=== PATIENT | female | born 1995 | race Caucasian/White ===

== ENCOUNTER 2018-11-27 23:01 | Emergency (ER) | payer OTHER ==
[2018-11-27 23:22] VITALS: O2SAT 100
[2018-11-27] MEDS ORDERED: Zofran 4 MG/2 ML VIAL IV ONE (23:34)
[2018-11-27] MEDS ORDERED: Sodium Chloride 0.9% 1000 ML 1,000 ML IV STA (23:34)
--- NOTE | 2018-11-27 23:34 | ERPHSYRPT ---
- History of Present Illness Time Seen by Provider: 11/27/18 23:20 Source: patient Exam Limitations: no limitations Patient Subjective Stated Complaint: Pt states she was sitting when she started to feel like she would "pass out", started loosing hearing and getting tunnel vision, put head between her knees to try to stop from passing out. pt states "the next thing I know the ambulance was there". Pt states she has passed out before "but it was because of over heating". Triage Nursing Assessment: pink/warm/dry, resp easy, a&ox4, steady gait to room , rash noted to inner thighs and knees that pt is taking medications for. Physician History: 23 y/o white female [facility]. this evening, pt felt dizzy and felt as though she was going to pass out. then she did. woke up and ems there evaluating her. pt had a similary episode in the remove past and was dx with overheating. denies head injury, headache, cp, abd pain, n/v/d. pt denies h /o seizures but boyfriend witnessed her shaking, sliding down from a sitting position, was "out of it" for 3 to 5 minutes, breathing on her own, with a rapid heart rate and incontinent of stool. pt refused ems transport. pt came into ED on her own. pt is taking hydroxyzine, prednisone and doxycycline for skin rash/infection. Witnessed: by family Prior Episodes: single episode today, remote history Timing/Duration: today, resolved prior to arrival Precipitating Factors: lightheadedness, other (tunnel vision) Loss of Consciousness: unsure, other (woke up and ems was evaluating her. ) Charcter of event(s): became unresponsive, felt faint Allergies/Adverse Reactions: Penicillins Allergy (Verified 11/27/18 23:11) Hx Tetanus, Diphtheria Vaccination/Date Given: Yes Hx Influenza Vaccination/Date Given: Yes Hx Pneumococcal Vaccination/Date Given: Yes Immunizations Up to Date: Yes - Past Medical History Pertinent Past Medical History: No Neurological History: No Pertinent History ENT History: No Pertinent History Cardiac History: No Pertinent History Respiratory History: No Pertinent History Endocrine Medical History: No Pertinent History Musculoskeletal History: No Pertinent History GI Medical History: No Pertinent History History: No Pertinent History Psycho-Social History: No Pertinent History Female Reproductive Disorders: No Pertinent History - Past Surgical History Past Surgical History: No Neuro Surgical History: No Pertinent History Cardiac: No Pertinent History Respiratory: No Pertinent History Gastrointestinal: No Pertinent History Genitourinary: No Pertinent History Musculoskeletal: No Pertinent History Female Surgical History: No Pertinent History - Social History Smoking Status: Current every day smoker Exposure to second hand smoke: Yes Drug Use: none Patient Lives Alone: No - Female History Hx Last Menstrual Period: 2 weeks ago Hx Now: No - Review of Systems Constitutional: No Symptoms Eyes: No Symptoms Ears, Nose, & Throat: No Symptoms Respiratory: No Symptoms Cardiac: No Symptoms Abdominal/Gastrointestinal: No Symptoms Genitourinary Symptoms: No Symptoms Musculoskeletal: No Symptoms Skin: Rash Neurological: Dizziness, Seizure Psychological: No Symptoms Endocrine: No Symptoms Hematologic/Lymphatic: No Symptoms Immunological/Allergic: No Symptoms All Other Systems: Reviewed and Negative Physical Exam - Nursing Vital Signs Nursing Vital Signs: Initial Vital Signs Temperature 97.9 F 11/27/18 23:12 Pulse Rate 74 11/27/18 23:12 Respiratory Rate 14 11/27/18 23:12 Blood Pressure 118/85 11/27/18 23:12 O2 Sat by Pulse Oximetry 100 11/27/18 23:12 Pain Scale Pain Intensity 0 - Waldemar Coma Scale Best Eye Response ([place]ar): (4) open spontaneously Best Verbal Response ([place]): (5) oriented Best Motor Response (W[place]emar): (6) obeys commands Waldemar Total: 15 - Physical Exam General Appearance: no apparent distress, alert, anxiety Eye Exam: bilateral eye: normal inspection, PERRL, EOMI Ears, Nose, Throat Exam: normal ENT inspection, TMs normal, pharynx normal, moist mucous membranes Neck Exam: normal inspection, non-tender, supple, full range of motion Respiratory: normal breath sounds, lungs clear, airway intact, No chest tenderness, No respiratory distress Cardiovascular: regular rate/rhythm, normal heart sounds, normal peripheral pulses Gastrointestinal: soft, normal bowel sounds, No tenderness Pelvic Exam: not done Rectal Exam: not done Back Exam: normal inspection, normal range of motion, No CVA tenderness, No vertebral tenderness Extremity Exam: normal inspection, normal range of motion, pelvis stable Mental Status: alert, oriented x 3, 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 Exam: normal hearing, normal speech, PERRL, tongue midline Coordination/Gait: normal finger to nose, normal gait, normal cerebellar function Motor/Sensory: no motor deficit, no sensory deficit, no pronator drift Skin Exam: rash (bilat lower ext rash(pt currently under tx)) SpO2 Interpretation: normal SpO2: 100 O2 Delivery: Room Air - Course Nursing assessment & vital signs reviewed: Yes EKG Interpreted by Me: RATE (63), Sinus Rhythm, NORMAL INTERVALS, NORMAL QRS, Other (SI/QIIIpattern; no acute ischemia; no comparison ekg) Ordered Tests: Active Orders 24 hr Category Date Time Status Third Cook STAT Care 11/27/18 23:35 Active Clean Catch Urine Specimen STAT Care 11/27/18 23:34 Active EKG-ER Only STAT Care 11/27/18 23:34 Active IV Insertion STAT Care 11/27/18 23:34 Active Orthostatic Vital Signs STAT Care 11/27/18 23:27 Active HEAD WITHOUT CONTRAST [CT] Stat Exams 11/27/18 23:35 Ordered Medication Summary Discontinued Medications Generic Name Dose Route Start Last Admin Trade Name Freq PRN Reason Stop Dose Admin Sodium Chloride 1,000 mls @ 999 mls/hr 11/27/18 23:34 11/28/18 00:02 Sodium Chloride 0.9% 1000 Ml IV 11/28/18 00:34 999 mls/hr .Q1H1M STA Administration Sodium Chloride Confirm 11/27/18 23:41 Sodium Chloride 0.9% 1000 Ml Administered 11/27/18 23:42 Dose 1,000 mls @ ud .ROUTE .STK-MED ONE Ondansetron HCl 4 mg 11/27/18 23:34 11/28/18 00:02 Zofran 4 Mg/2 Ml Vial IV 11/27/18 23:35 4 mg STAT ONE Administration Ondansetron HCl Confirm 11/27/18 23:41 Zofran 4 Mg/2 Ml Vial Administered 11/27/18 23:42 Dose 4 mg .ROUTE .STK-MED ONE Lab/Rad Data: Laboratory Result Diagrams 11/27/18 00:16 11/27/18 00:16 Laboratory Results 11/27/18 11/27/18 11/27/18 Range/Units 00:16 00:16 00:16 WBC 17.6 H (4.0-10.5) K/mm3 RBC 4.70 (4.1-5.4) M/mm3 Hgb 14.4 (12.0-16.0) gm/dl Hct 43.2 (35-47) % MCV 91.9 (78-100) fl MCH 30.6 (26-32) pg MCHC 33.3 (32-36) g/dl RDW 13.6 (11.5-14.0) % Plt Count 196 (150-450) K/mm3 MPV 13.0 H (6-9.5) fl Gran % 64.5 (36.0-66.0) % Eos # (Auto) 1.52 H (0-0.5) Absolute Lymphs (auto) 3.56 (1.0-4.6) Absolute Monos (auto) 1.17 (0.0-1.3) Lymphocytes % 20.2 L (24.0-44.0) % Monocytes % 6.6 (0.0-12.0) % Eosinophils % 8.6 H (0.00-5.0) % Basophils % 0.1 (0.0-0.4) % Absolute Granulocytes 11.36 H (1.4-6.9) Basophils # 0.02 (0-0.4) Sodium 138 (137-145) mmol/L Potassium 3.1 L (3.5-5.1) mmol/L Chloride 102 (98-107) mmol/L Carbon Dioxide 25 (22-30) mmol/L Anion Gap 13.9 (5-15) MEQ/L BUN 12 (7-17) mg/dL Creatinine 0.60 (0.52-1.04) mg/dL Estimated GFR > 60.0 ML/MIN Glucose 77 (74-106) mg/dL Calcium 8.9 (8.4-10.2) mg/dL Total Bilirubin 0.30 (0.2-1.3) mg/dL AST 15 (14-36) U/L ALT 18 (0-35) U/L Alkaline Phosphatase 43 (38-126) U/L Serum Total Protein 6.7 (6.3-8.2) g/dL Albumin 3.8 (3.5-5.0) g/dL Urine Color (YELLOW) Urine Appearance (CLEAR) Urine pH (5-6) Ur Specific Lockhart (1.005-1.025) Urine Protein (Negative) Urine Ketones (NEGATIVE) Urine Blood (0-5) Charles/ul Urine Nitrite (NEGATIVE) Urine Bilirubin (NEGATIVE) Urine Urobilinogen (0-1) mg/dL Ur Leukocyte Esterase (NEGATIVE) Urine WBC (Auto) (0-5) /HPF Urine RBC (Auto) (0-2) /HPF U Epithel Cells (Auto) (FEW) /HPF Urine Bacteria (Auto) (NEGATIVE) /HPF Urine Mucus (Auto) (NEGATIVE) /HPF Urine Culture Reflexed (NO) Urine Glucose (NEGATIVE) mg/dL Urine HCG, Qual NEGATIVE (Negative) Urine Opiates Level (NEGATIVE) Ur Methadone (NEGATIVE) Urine Barbiturates (NEGATIVE) Ur Phencyclidine (PCP) (NEGATIVE) Urine Amphetamine (NEGATIVE) U Benzodiazepine Level (NEGATIVE) Urine Cocaine (NEGATIVE) Urine Marijuana (THC) (NEGATIVE) Ethyl Alcohol < 10 (0-10) mg/dL 11/27/18 11/27/18 Range/Units 00:16 00:16 WBC (4.0-10.5) K/mm3 RBC (4.1-5.4) M/mm3 Hgb (12.0-16.0) gm/dl Hct (35-47) % MCV (78-100) fl MCH (26-32) pg MCHC (32-36) g/dl RDW (11.5-14.0) % Plt Count (150-450) K/mm3 MPV (6-9.5) fl Gran % (36.0-66.0) % Eos # (Auto) (0-0.5) Absolute Lymphs (auto) (1.0-4.6) Absolute Monos (auto) (0.0-1.3) Lymphocytes % (24.0-44.0) % Monocytes % (0.0-12.0) % Eosinophils % (0.00-5.0) % Basophils % (0.0-0.4) % Absolute Granulocytes (1.4-6.9) Basophils # (0-0.4) Sodium (137-145) mmol/L Potassium (3.5-5.1) mmol/L Chloride (98-107) mmol/L Carbon Dioxide (22-30) mmol/L Anion Gap (5-15) MEQ/L BUN (7-17) mg/dL Creatinine (0.52-1.04) mg/dL Estimated GFR ML/MIN Glucose (74-106) mg/dL Calcium (8.4-10.2) mg/dL Total Bilirubin (0.2-1.3) mg/dL AST (14-36) U/L ALT (0-35) U/L Alkaline Phosphatase (38-126) U/L Serum Total Protein (6.3-8.2) g/dL Albumin (3.5-5.0) g/dL Urine Color YELLOW (YELLOW) Urine Appearance SLIGHTLY CLOUDY (CLEAR) Urine pH 6.0 (5-6) Ur Specific [place] 1.027 (1.005-1.025) Urine Protein NEGATIVE (Negative) Urine Ketones NEGATIVE (NEGATIVE) Urine Blood NEGATIVE (0-5) Charles/ul Urine Nitrite NEGATIVE (NEGATIVE) Urine Bilirubin NEGATIVE (NEGATIVE) Urine Urobilinogen NEGATIVE (0-1) mg/dL Ur Leukocyte Esterase NEGATIVE (NEGATIVE) Urine WBC (Auto) NONE (0-5) /HPF Urine RBC (Auto) NONE (0-2) /HPF U Epithel Cells (Auto) NONE (FEW) /HPF Urine Bacteria (Auto) NONE (NEGATIVE) /HPF Urine Mucus (Auto) MODERATE (NEGATIVE) /HPF Urine Culture Reflexed NO (NO) Urine Glucose NEGATIVE (NEGATIVE) mg/dL Urine HCG, Qual (Negative) Urine Opiates Level NEGATIVE (NEGATIVE) Ur Methadone NEGATIVE (NEGATIVE) Urine Barbiturates NEGATIVE (NEGATIVE) Ur Phencyclidine (PCP) NEGATIVE (NEGATIVE) Urine Amphetamine NEGATIVE (NEGATIVE) U Benzodiazepine Level NEGATIVE (NEGATIVE) Urine Cocaine NEGATIVE (NEGATIVE) Urine Marijuana (THC) NEGATIVE (NEGATIVE) Ethyl Alcohol (0-10) mg/dL - Progress Progress: improved, re-examined Progress Note: 11/28/18 02:20 ct head-negative Counseled pt/family regarding: lab results, diagnosis, need for follow-up, rad results - Departure Departure Disposition: Home Clinical Impression: Episode of syncope Condition: Stable Critical Care Time: No Referrals: MAYELIN SHAIKH [Primary Care Provider] - Additional Instructions: drink plenty of fluids. follow up with primary doctor for further management including EEG and evaluation by neurologist if indicated
[2018-11-27] MEDS ORDERED: Zofran 4 MG/2 ML VIAL ONE (23:41)
[2018-11-27] MEDS ORDERED: Sodium Chloride 0.9% 1000 ML 1,000 ML ONE (23:41)
[2018-11-28 00:22] LABS: BASOPHIL % 0.1 % (0.0-0.4); Basophil (Absolute #) 0.02 (0-0.4); Eosinophil % 8.6 % (0.00-5.0); Eosinophil (Absolute #) 1.52 (0-0.5); Granulocyte Absolute (ANC) 11.36 (1.4-6.9); Granulocytes % 64.5 % (36.0-66.0); Hematocrit 43.2 % (35-47); Hemoglobin 14.4 gm/dl (12.0-16.0); Lymphocyte (Absolute #) 3.56 (1.0-4.6); Lymphocytes % 20.2 % (24.0-44.0); Mean Cell Volume 91.9 fl (78-100); Mean Corpuscular Hemoglobin 30.6 pg (26-32); Mean Corpuscular Hgb Concent. 33.3 g/dl (32-36); Monocyte (Absolute #) 1.17 (0.0-1.3); Monocytes % 6.6 % (0.0-12.0); Platelet Count 196 K/mm3 (150-450); Red Cell Distribution Width 13.6 % (11.5-14.0); White Blood Count 17.6 K/mm3 (4.0-10.5)
[2018-11-28 00:32] LABS: ALBUMIN 3.8 g/dL (3.5-5.0); ALKALINE PHOSPHATASE 43 U/L (38-126); ANION GAP 13.9 MEQ/L (5-15); BLOOD UREA NITROGEN 12 mg/dL (7-17); CHLORIDE 102 mmol/L (98-107); Calcium 8.9 mg/dL (8.4-10.2); Carbon Dioxide 25 mmol/L (22-30); Glucose 77 mg/dL (74-106); Potassium 3.1 mmol/L (3.5-5.1); SGOT/AST 15 U/L (14-36); SGPT/ALT 18 U/L (0-35); SODIUM 138 mmol/L (137-145); Total Protein 6.7 g/dL (6.3-8.2)
[2018-11-28 00:33] LABS: Appearance SLIGHTLY CLOUDY (CLEAR); Bilirubin NEGATIVE (NEGATIVE); Blood NEGATIVE Ery/ul (0-5); ETHYL ALCOHOL < 10 mg/dL (0-10); Glucose NEGATIVE (NEGATIVE); Ketones NEGATIVE (NEGATIVE); Leukocyte Esterase NEGATIVE (NEGATIVE); Mucus MODERATE /HPF (NEGATIVE); Nitrite NEGATIVE (NEGATIVE); Protein,Urine Dip NEGATIVE (Negative); Specific Gravity 1.027 (1.005-1.025); Urobilinogen NEGATIVE mg/dL (0-1)
[2018-11-28 00:35] LABS: Amphetamine,Urine NEGATIVE (NEGATIVE); Barbiturate,Urine NEGATIVE (NEGATIVE); Benzodiazepine,Urine NEGATIVE (NEGATIVE); Cocaine,Urine NEGATIVE (NEGATIVE); Methadone,Urine NEGATIVE (NEGATIVE); Opiate,Urine NEGATIVE (NEGATIVE); PCP,Urine NEGATIVE (NEGATIVE); THC,Urine NEGATIVE (NEGATIVE)
[2018-11-28 02:29] VITALS: BP 113/70; PULSE 80
[2018-11-28] MEDS ORDERED: Klor Con 10 MEQ PO ONE ×2 (02:33→02:37)
--- NOTE | 2018-11-28 08:46 | XRAY ---
Indication: Syncope. Dizziness. Multiple contiguous axial images obtained through the head without contrast. Comparison: None Normal appearing brain parenchyma, ventricles, and bony calvarium. Visualized paranasal sinuses and mastoid air cells are clear. Impression: Normal CT head without contrast exam. Comment: Preliminary interpretation was made by [facility]. No discrepancy. CTDI 70.38
== END 2018-11-28 02:49 | disposition home or self-care (01) ==
LOC: ED 23:01
DX: R55 Syncope and collapse (principal)
CPT/HCPCS: 36000; 36415; 70450; 80053; 80307; 81001; 84703; 85025; 93005; 93041; 96360; 96374; 99284; J2405; A9270-GY; G0480